=== PATIENT | male | born 1945 | race Caucasian/White ===

== ENCOUNTER 2019-08-03 15:07 | Outpatient (CLI) | payer MEDICARE, SELFPAY ==
[2019-08-03 16:30] LABS: Cholesterol 270 mg/dL (0-200); HDL Direct 43 mg/dL (40-60); LDL Cholesterol Calculated 188 mg/dL (<130); Triglycerides 194 mg/dL (0-150)
== END 2019-08-03 15:08 | disposition home or self-care (01) ==
PROVIDERS: PCP Internal Medicine Cardiovascular Disease; Visit Provider Internal Medicine Cardiovascular Disease
DX: E78.5 Hyperlipidemia, unspecified (principal)
CPT/HCPCS: 36415; 80061

== ENCOUNTER 2019-09-25 18:24 | Outpatient (CLI) | payer MEDICARE, SELFPAY ==
[2019-09-25 19:43] LABS: Prostate Specific Antigen < 0.1 ng/mL (< OR = 4.0)
== END 2019-09-25 18:25 | disposition home or self-care (01) ==
LOC: CHSLAB 18:27
PROVIDERS: PCP Family Medicine; Visit Provider Urology
DX: C61 Malignant neoplasm of prostate (principal); Z19.1 Hormone sensitive malignancy status
CPT/HCPCS: 36415; 84153

== ENCOUNTER 2020-03-19 10:36 | Outpatient (CLI) | payer MEDICARE, SELFPAY ==
[2020-03-19 12:03] LABS: Prostate Specific Antigen < 0.1 ng/mL (< OR = 4.0)
== END 2020-03-19 10:37 | disposition home or self-care (01) ==
LOC: CHSLAB 10:38
PROVIDERS: PCP Family Medicine; Visit Provider Urology
DX: C61 Malignant neoplasm of prostate (principal)
CPT/HCPCS: 36415; 84153

== ENCOUNTER 2021-03-18 14:20 | Outpatient (CLI) | payer MEDICARE, SELFPAY ==
[2021-03-18 15:17] LABS: Prostate Specific Antigen < 0.1 ng/mL (< OR = 4.0)
== END 2021-03-18 14:21 | disposition home or self-care (01) ==
LOC: CHSLAB 14:23
PROVIDERS: PCP Family Medicine; Visit Provider Urology
DX: C61 Malignant neoplasm of prostate (principal)
CPT/HCPCS: 36415; 84153

== ENCOUNTER 2021-09-15 12:47 | Outpatient (CLI) | payer MEDICARE, SELFPAY ==
[2021-09-15 13:31] LABS: Prostate Specific Antigen < 0.1 ng/mL (< OR = 4.0)
== END 2021-09-15 12:48 | disposition home or self-care (01) ==
LOC: CHSLAB 12:48
PROVIDERS: PCP Family Medicine; Visit Provider Urology
DX: C61 Malignant neoplasm of prostate (principal)
CPT/HCPCS: 36415; 84153

== ENCOUNTER 2022-01-17 19:01 | Outpatient (CLI) | payer MEDICARE, SELFPAY ==
[2022-01-17 19:33] LABS: Alanine Aminotransferase 22 U/L (16-63); Albumin Level 3.8 g/dL (3.4-5.0); Alkaline Phosphatase 87 U/L (46-116); Anion Gap 8 mmol/L (8-16); Aspartate Amino Transferase 18 U/L (15-37); Bilirubin,Total 0.4 mg/dL (0.00-1.00); Blood Urea Nitrogen 19 mg/dL (7-18); Calcium 8.9 mg/dL (8.5-10.1); Carbon Dioxide 27 mmol/L (21-32); Chloride 108 mmol/L (98-108); Estimated Glomerular Filt Rate 60; Glucose 114 mg/dL (70-99); Osmolality Calculated 299 mOsm/kg (285-295); Potassium 3.9 mmol/L (3.5-5.1); Sodium 143 mmol/L (136-145); Total Protein 7.3 g/dL (6.4-8.2)
== END 2022-01-17 19:02 | disposition home or self-care (01) ==
LOC: CHSLAB 19:04
PROVIDERS: PCP Nurse Practitioner Family; Visit Provider Nurse Practitioner Family
DX: L29.9 Pruritus, unspecified (principal); T78.40XA Allergy, unspecified, initial encounter
CPT/HCPCS: 36415; 80053; 82785; 86003

== ENCOUNTER 2022-03-18 13:54 | Outpatient (CLI) | payer MEDICARE, SELFPAY ==
[2022-03-18 15:50] LABS: Prostate Specific Antigen 0.1 ng/mL (< OR = 4.0)
== END 2022-03-18 13:55 | disposition home or self-care (01) ==
LOC: CHSLAB 13:56
PROVIDERS: PCP Nurse Practitioner Family; Visit Provider Urology
DX: C61 Malignant neoplasm of prostate (principal)
CPT/HCPCS: 36415; 84153

== ENCOUNTER 2023-04-29 07:22 | Outpatient (CLI) | payer MEDICARE, SELFPAY | END 2023-04-29 07:23 | disposition home or self-care (01) | PROVIDERS: PCP Nurse Practitioner Family; Visit Provider Urology | DX: C61 Malignant neoplasm of prostate (principal) | CPT/HCPCS: 36415; 84153 ==

== ENCOUNTER 2023-05-23 14:25 | Outpatient (CLI) | payer MEDICARE, OTHER, SELFPAY ==
--- NOTE | 2023-05-23 14:44 | ECG_ITS ---
Measurements Intervals [place] Rate: 66 P: 52 MN: 192 QRS: 71 QRSD: 94 T: 43 QT: 390 QTc: 410 Interpretive Statements SINUS RHYTHM NO PREVIOUS ECG AVAILABLE FOR COMPARISON Electronically Signed On 05-23-2023 14:50:52 PHOTORESIST PRINTER by Shahid Dukes M.D.
[2023-05-23 14:46] LABS: Basophils Absolute Auto 0.03 K/mm3 (0.00-0.10); Basophils Percent Auto 0.4 % (0.0-1.0); Eosinophils Absolute Auto 0.17 K/mm3 (0.02-0.50); Eosinophils Percent Auto 2.5 % (1.0-6.0); Hematocrit 39.6 % (37.0-46.0); Hemoglobin 12.9 g/dL (12.4-15.3); Immature Granulocyte Absolute 0.03 K/mm3 (0.00-0.00); Immature Granulocyte Percent A 0.4 % (0.0-0.0); Lymphocytes Absolute Auto 1.34 K/mm3 (1.10-4.50); Mean Corpuscular HGB Conc 32.6 g/dL (32.0-36.0); Mean Corpuscular Hemoglobin 31.2 pg (27.0-31.0); Mean Corpuscular Volume 95.9 fL (78.0-102.0); Mean Platelet Volume 8.8 fl (8.7-11.0); Monocytes Absolute Auto 0.61 K/mm3 (0.10-0.90); Monocytes Percent Auto 9.1 % (2.0-11.0); Neutrophils Absolute Auto 4.5 K/mm3 (1.7-7.2); Neutrophils Percent Auto 67.6 % (50.0-70.0); Platelet Count Result 227 K/mm3 (150-420); Red Blood Count 4.13 M/mm3 (4.70-6.10); Red Cell Distribution Width 12.5 % (11.6-14.4); White Blood Count 6.7 K/mm3 (4.8-10.8)
[2023-05-23 15:09] LABS: Alanine Aminotransferase 22 U/L (16-63); Albumin Level 3.7 g/dL (3.4-5.0); Alkaline Phosphatase 80 U/L (46-116); Anion Gap 9 mmol/L (8-16); Aspartate Amino Transferase 24 U/L (15-37); Bilirubin,Total 0.6 mg/dL (0.00-1.00); Blood Urea Nitrogen 15 mg/dL (7-18); Calcium 8.9 mg/dL (8.5-10.1); Carbon Dioxide 30 mmol/L (21-32); Chloride 103 mmol/L (98-108); Estimated Glomerular Filt Rate > 60; Glucose 99 mg/dL (70-99); Iron 53 ug/dL (65-175); Magnesium 2.2 mg/dL (1.8-2.4); Osmolality Calculated 294 mOsm/kg (285-295); Potassium 4.1 mmol/L (3.5-5.1); Sodium 142 mmol/L (136-145); Total Protein 7.2 g/dL (6.4-8.2)
[2023-05-26 02:39] LABS: Vitamin D 25 Hydroxy 29 ng/mL (30-100)
== END 2023-05-23 14:26 | disposition home or self-care (01) ==
LOC: CHSLAB 14:27
PROVIDERS: PCP Nurse Practitioner Family; Visit Provider Nurse Practitioner Family
DX: L29.9 Pruritus, unspecified (principal); R55 Syncope and collapse; Z79.899 Other long term (current) drug therapy
CPT/HCPCS: 36415; 80053; 82306; 83540; 83735; 85025; 93005

== ENCOUNTER 2023-05-25 08:33 | Outpatient (CLI) | payer MEDICARE, OTHER, SELFPAY ==
--- NOTE | ~2023-05-25 | MR_ITS ---
MRI of the brain Clinical History: Syncope Technique: Axial and sagittal T1-weighted images were acquired. These were followed by axial T2-weigh dorys, diffusion weighted, gradient, and FLAIR images. Findings: There is no acute infarct, intracranial hemorrhage, or mass lesion. There are mild chronic microvascular ischemic changes in the navicular matter bilaterally. Ventricles and subarachnoid spaces are unremarkable. Orbits are unremarkable. Paranasal sinuses are e ssentially clear. Small mastoid effusions are present. Major intracranial flow voids are intact. Sagittal midline structures are intact. IMPRESSION: No acute infarct, intracranial hemorrhage, or mass lesion. Mild chronic microvascular ischemic changes. Reviewed, dictated and finalized at [facility]. ICAL ADMINISTRATOR
== END 2023-05-25 08:34 | disposition home or self-care (01) ==
PROVIDERS: PCP Nurse Practitioner Family; Visit Provider Nurse Practitioner Family
DX: R55 Syncope and collapse (principal)
CPT/HCPCS: 70551

== ENCOUNTER 2024-05-02 15:04 | Outpatient (CLI) | payer MEDICARE, OTHER, SELFPAY ==
[2024-05-02 16:16] LABS: Prostate Specific Antigen 3.4 ng/mL (< OR = 4.0)
== END 2024-05-02 15:05 | disposition home or self-care (01) ==
PROVIDERS: PCP Nurse Practitioner Family; Visit Provider Urology
DX: C61 Malignant neoplasm of prostate (principal)
CPT/HCPCS: 36415; 84153

== ENCOUNTER 2024-05-31 12:59 | Outpatient (CLI) | payer MEDICARE, OTHER, SELFPAY ==
--- NOTE | ~2024-05-31 | PE_ITS ---
EXAMINATION: PET_PETPSMAST_PT DATE: 05/31/2024 14:44 INDICATION: Prostate cancer TECHNIQUE: 4.369 mCi of Illucix Ga-[id number]) was administered i.v. Low dose computed tabitha graphy (CT) images were acquired from the base of the brain to the base of the brain to the proximal thighs for attenuation correction and anatomic localization. Positron emission tomography (PET) image s were acquired in the same distribution beginning 77 minutes after injection. Images including fused PET/CT images were reconstructed in axial, coronal, and sagittal planes. Automated exposure control technique was employed. The dose-length product was 786.16mGy-cm. COMPARISON: CT abdomen and pelvis dated 08/25/2017 FINDINGS: Head/neck: Typical pattern of symmetric physiologic increased activity in the lacrimal, parotid and submandibula r glands as well as along the mucosa of the nasal and oral cavities, pharynx and hypopharynx. Mucosal thickening the bilateral ethmoid sinuses. No pathologically enlarged cervical lymphadenopathy or khadijah picious foci of increased uptake in the visualized head or neck. Chest: Mild dependent and basilar atelectasis in both lungs. No suspicious pulmonary nodules, pneumonia, pul monary edema or pleural effusion. Mild cardiomegaly. Atherosclerotic coronary artery calcifications. 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 Thoracic aorta is normal in ca liber. There are a few normal-sized bilateral axillary lymph nodes with mild uptake the largest and m ost PSMA avid measuring 2.3 x 1.1 cm with prominent central fatty hilum and maximal SUV of 3.0. No pa thologically enlarged or more intensely PSMA avid thoracic lymph nodes. Abdomen/pelvis/proximal thighs: Physiologic renal accumulation and excretion of activity in the kidneys, bladder and along portions o f ureters. There are few surgical clips versus brachytherapy seeds at the prostate. There is a small focus of asymmetric mild uptake at the right-sided the prostate with maximal SUV of 3.1. Normal degre e and slightly heterogenous pattern of increased uptake throughout the liver and spleen without radio logic correlate or dominant PSMA avid lesion. There is a photopenic defect associated with a 1 cm sub capsular cyst along the anterior left hepatic lobe. Multiple calcified gallstones in the dependent as pect of the normal-appearing gallbladder. The pancreas and bilateral adrenal glands are normal. Moder ate uptake scattered throughout the bowels with typical duodenal and proximal jejunal predominance an d without radiologic correlate, also likely physiologic. Image colonic diverticula most prominent ashley ng the descending and sigmoid colon without adjacent from trace stranding to suggest diverticulitis. Moderate-sized bilateral fat-containing inguinal hernias. No other abnormal foci of increased uptake or pathologically enlarged lymphadenopathy in the abdomen, pelvis or proximal thighs. Musculoskeletal: Moderate spondylosis the lower cervical and lower thoracic spine. No suspicious lytic, blastic or PSM A avid bone lesions. IMPRESSION: 1. Small focus of mild increased uptake at the right side of the prostate which could represent resid ual/locally recurrent disease. 2. Appears symmetric mild uptake associated with a few normal-sized bilateral axillary lymph nodes. A lthough could not exclude metastatic disease this would be an atypical distribution for initial prese ntation of metastatic disease in the absence of additional metastatic lymphadenopathy in the pelvis. Reviewed, dictated and finalized at location [facility]. R SPECIALIST IMPRESSION: 1. Small focus of mild increased uptake at the right side of the prostate which could represent residual/locally recurrent disease. 2. Appears symmetric mild uptake associated with a few normal-sized bilateral a xillary lymph nodes. Although could not exclude metastatic disease this would b e an atypical distribution for initial presentation of metastatic disease in th e absence of additional metastatic lymphadenopathy in the pelvis.
--- OUTSIDE RECORDS SUMMARY | 2024-05-31 13:03 | XMS_ITS | Clinical Summary ---
Author Organization [facility] Address [facility] [place] [address] Care Team Providers Care Bottle Washer Machine Name Role Phone Unavailable Primary Care Provider Unavailabl e Social History Tobacco Use Types Packs/Day Years Used Date Smoking Tobacco: Never Assessed Sex and Gender Information Value Date Recorded Sex Assigned at Not on file Legal Sex Male 7:42 AM CDT Gender Identity Not on file Sexual Orientation Not on file Plan of Treatment Health Maintenance Due Date Last Done Comments Hepatitis C 1963 DTaP, Tdap and Td Vaccines ( 1 - Tdap) 1965 Zoster Vaccines (1 of 2) 1996 Pneumococcal Vaccine: 65+ Ye ars (1 of 1 - PCV) 08/02/2011 RSV Immunization or 60+ Years (1 - 1-dose 75+ series) 2021 COVID-19 Vaccine ( - 2023-2 5 season) 2023 Influenza Adult (#1) 2024 Meningococcal B Vaccine Aged Out No l onger eligible based on patient's age to complete this topic Meningococcal Vaccine Aged Out No madonna coleman eligible based on patient's age to complete this topic RSV Immunizations Under 20 Months Aged Out No longer eligible based on patient's age to complete this topic
== END 2024-05-31 13:00 | disposition home or self-care (01) ==
LOC: ANHIMG 12:59
PROVIDERS: PCP Nurse Practitioner Family; Visit Provider Urology
DX: C61 Malignant neoplasm of prostate (principal)
CPT/HCPCS: 78815; A9596

== ENCOUNTER 2024-07-10 12:58 | Outpatient (CLI) | payer MEDICARE, SELFPAY ==
--- OUTSIDE RECORDS SUMMARY | 2024-07-10 14:18 | XMS_ITS | Clinical Summary ---
Author Organization [facility] Address [facility] [place] [address] Care Team Providers Care Lap Layer Name Role Phone Unavailable Primary Care Provider [...] Vaccine ( - 2023-2 5 season) 2023 Meningococcal B Vaccine Aged Out No l onger eligible based on patient's age to complete this topic Meningococcal Vaccine Aged Out No madonna coleman eligible based on patient's age to complete this topic RSV Immunizations Under 20 Months Aged Out No longer eligible based on patient's age to complete this topic
[2024-07-10 14:21] LABS: Prostate Specific Antigen 4.2 ng/mL (< OR = 4.0)
== END 2024-07-10 12:59 | disposition home or self-care (01) ==
PROVIDERS: Urology; PCP Nurse Practitioner Family; Visit Provider Nurse Practitioner Family
DX: C61 Malignant neoplasm of prostate (principal)
CPT/HCPCS: 36415; 84153

== ENCOUNTER 2025-01-08 09:31 | Outpatient (CLI) | payer MEDICARE, SELFPAY ==
--- OUTSIDE RECORDS SUMMARY | 2025-01-08 10:07 | XMS_ITS | Clinical Summary ---
Author Organization [facility] Address [facility] [place] [address] Care Team Providers Care Structural Fitter Name Role Phone Unavailable Primary Care Provider [...] Td Vaccines ( 1 - Tdap) 1965 Pneumococcal Vaccine: 50+ Ye ars (1 of 1 - PCV) 1996 Zoster Vaccines (1 of 2) 1996 RSV Immunization or 60+ Years (1 - 1-dose 75+ series) 2021 COVID-19 Vaccine ( - 2023-2 5 season) 2024 Meningococcal B Vaccine Aged Out No l onger eligible based on patient's age to complete this topic Meningococcal Vaccine Aged Out No madonna coleman eligible based on patient's age to complete this topic RSV Immunizations Under 20 Months Aged Out No longer eligible based on patient's age to complete this topic
[2025-01-08 10:09] LABS: Alanine Aminotransferase 15 U/L (6-50); Albumin Level 4.4 g/dL (3.5-5.1); Alkaline Phosphatase 71 U/L (38-126); Anion Gap 7 mmol/L (4-12); Aspartate Amino Transferase 28 U/L (17-59); Bilirubin,Total 0.7 mg/dL (0.2-1.3); Blood Urea Nitrogen 19 mg/dL (9-20); Calcium 9.8 mg/dL (8.4-10.2); Carbon Dioxide 29 mmol/L (22-30); Chloride 106 mmol/L (98-107); Cholesterol 226 mg/dL (0-200); Estimated Glomerular Filt Rate > 60; Glucose 108 mg/dL (65-110); HDL Direct 46 mg/dL; Osmolality Calculated 297 mOsm/kg (285-295); Potassium 4.5 mmol/L (3.4-5.0); Sodium 142 mmol/L (137-145); Total Protein 7.8 g/dL (6.3-8.2); Triglycerides 106 mg/dL (<150)
[2025-01-08 10:39] LABS: Prostate Specific Antigen 7.6 ng/mL (< OR = 4.0)
== END 2025-01-08 09:32 | disposition home or self-care (01) ==
LOC: CHSLAB 09:32
PROVIDERS: PCP Nurse Practitioner Family; Visit Provider Nurse Practitioner Family
DX: E78.5 Hyperlipidemia, unspecified (principal); Z85.46 Personal history of malignant neoplasm of prostate
CPT/HCPCS: 36415; 80053; 80061; 84153

== ENCOUNTER 2025-02-03 12:38 | Outpatient (CLI) | payer MEDICARE, OTHER, SELFPAY ==
--- NOTE | ~2025-02-03 | XR_ITS ---
EXAMINATION: XR chest 2V, 02/03/2025 12:40 CDT HISTORY: S22.49XA - Multiple fractures of ribs, unspecified side, ... COMPARISON: No comparisons available. Technique: 2 views obtained. Findings: COPD changes. Small basilar infiltrates or pleural effusions. No pneumothorax. Mild cardiomegaly. Mediastinal and hilar contours are within normal limits. Post sternotomy. Impression: Early bilateral pneumonia Reviewed, dictated and finalized at location P. Impression: Early bilateral pneumonia
--- OUTSIDE RECORDS SUMMARY | 2025-02-03 13:57 | XMS_ITS | Clinical Summary ---
Author Organization [facility] Address [address] [place] [address] Care Team Providers Care Mine Technician Name Role Phone Allynmadyson Daniela Sera BOYDN-STAFF INTERPRETER Primary Care Provid er Source Comments [facility],non-owned Affiliates and Associated Physician Practices is amultiple site organization consisting of ambulatory clinics and hospital sitesin [place], [place], [place] and [place]. This disclosure is being madepursuant to the Care Everywhere program and may not contain all information available regarding this patient. Last updated 17.[facility] Allergies No known active allergies Medications * Be aware that medications may not be up to date on this document. Alwaysverify current medications with the patient. lidocaine (Lidoderm) 5 % patch Apply 1 (one) patch to skin once daily Apply patch to most painful area and remove after 12 hours. May reapply a new patch 12 hours later. 30 patch 01/25/20 25 Active acetaminophen (Tylenol) 325 MG tablet Take 2 (two) tablets by mouth every 6 hours Maximum allowable Acetaminophen amount = 4 Grams (4000 mg) / 24 hours. 112 tablet 01/24/2025 6:00 PM CDT 01/25/20 25 Active gabapentin (Neurontin) 300 MG capsule Take 1 (one) capsule by mouth 3 times daily 60 capsule 01/24/2025 6:00 PM CDT 01/25/20 25 Active oxyCODONE, immediate release, (Roxicodone) 5 MG tabletIndication s:Trauma,Traumat ic fracture of ribs of right side with pneumothorax,Jaja sed fracture of multiple ribs of both sides, initial encounter,Trauma tic fracture of ribs of left side with pneumothorax Take 1 (one) tablet by mouth every 4 hours as needed for Pain 33 tablet 01/24/2025 6:00 PM CDT 01/25/20 Active polyethylene glycol 3350 (Miralax) 17 GM/SCOOP powder Take 17 (seventeen) g by mouth once daily 238 g 01/25/20 Active senna (Senokot) 8.6 MG tablet Take 1 (one) tablet by mouth once daily 30 tablet 01/24/2025 6:00 PM CDT 01/25/20 25 Active aspirin (Aspirin) 81 MG chew tablet Take 1 (one) tablet by mouth once daily (chew and swallow) 30 tablet 01/24/2025 6:00 PM CDT 01/26/20 25 Active Active Problems Problem Noted Date Diagnosed Date Trauma 01/22/2025 Closed fracture of multiple ribs of both sides, initial encounter 01/22/2025 Traumatic fracture of ribs of right side with pn eumothorax 01/22/2025 Traumatic fracture of ribs of left side with pne umothorax 01/22/2025 Encounters Date Type Department Care Team Description 01/22/2025 11:44 AM CDT - 01/24/2025 6:36 PM CDT Hospital Encounter [facility] 5N ACUTE [address] [place] [address] Jose Ramon Allen MD Behr, Antoni Walsh MD Trauma Discharge Disposition: Home or Self Care 01/22/2025 Travel from Last 3 Months Social History Tobacco Use Types Packs/Day Years Used Date Smoking Tobacco: Former Cigarettes Q uit: 1979 Smokeless Tobacco: Never Tobacco Cessation:Counseling Given: Yes Alcohol Use Standard Drinks/Week Comments Never 0 (1 standard drink = 0.6 oz pur e alcohol) AUDIT-C Answer Date Recorded Q1: How often do you have a drink containing alcohol? Never 01/22/2025 Q2: How many drinks containi ng alcohol do you have on a typical day when you are drinking? Patient does not drink Q3: How often do you have si x or more drinks on one occasion? Never 01/22/2025 Overall Financial Resource Strain (CARDIA) Answe r Date Recorded How hard is it for you to pa y for the very basics like food, housing, medical care, and heating? Not hard at all 01/23/2025 [facility] - Occupational Stress Questionnaire Answer Date Recorded Do you feel stress - tense, restless, nervous, or anxious, or unable to sleep at night because your mind is troubled all the time - these days? Not at all 01/23/2025 Hunger Vital Sign Answer Date Recorded Within the past 12 months, y ou worried that your food would run out before you got the money to buy more. Never true 01/24/20 25 Within the past 12 months, t he food you bought just didn't last and you didn't have money to get more. Never true 01/23/2025 PRAPARE - Transportation Answer Date Re corded In the past 12 months, has l ack of transportation kept you from medical appointments or from getting medications? No 01/23/2025 Lack of Transportation (Non-Medical) Not on file 01/23/2025 Housing Stability Vital Sign Answer Guillermo e Recorded In the last 12 months, was t here a time when you were not able to pay the mortgage or rent on time? No 01/23/2025 In the past 12 months, how m any times have you moved where you were living? 0 01/23/2025 At any time in the past 12 m [facility], were you homeless or living in a half-way (including now)? No 01/23/2025 Sex and Gender Information Value Date Recorded Sex Assigned at Not on file Legal Sex Male 11:43 AM CDT Gender Identity Not on file Sexual Orientation Not on file Last Filed Vital Signs Vital Sign Reading Time Taken Comments Blood Pressure 108/63 01/24/2025 11:50 AM CDT Pulse 63 01/24/2025 11:50 AM CDT Temperature 36.6 C (97.8 F) 01/24/2025 11:50 AM CDT Respiratory Rate 18 01/24/2025 11:50 AM CDT Oxygen Saturation 97% 01/24/2025 11:50 AM CDT Inhaled Oxygen Concentration - - Weight 65.8 kg (145 lb 1 oz) 01/23/2025 4:00 AM CDT Height 182.9 cm (6' 0.01) 01/22/2025 8:28 PM CD T Body Mass Index 19.67 01/22/2025 8:28 PM CDT Plan of Treatment Upcoming Encounters Date Type Department Care Team (Late st Contact Info) Description 02/06/2025 12:00 PM CDT Office Visit [facility] - General Surgery [address] [place] [address] Health Maintenance Due Date Last Done Comments MEDICARE AWV 12 MONTHS 1945 HEPATITIS C SCREENING 07/27/1964 DTAP/TDAP/TD VACCINES (1 - Tdap) 1965 PNEUMOCOCCAL VACCINE 50+ (1 of 1 - PCV) 1996 ZOSTER VACCINE (1 of 2) 1996 Respiratory Syncytial Virus (RSV) Vaccine Pt: or over 60 yrs (1 - 1-dose 75+ series) 2021 DEPRESSION SCREENING 04/10/2024 COVID-19 VACCINE ( - 2023-2 5 season) 2024 INFLUENZA VACCINE (#1) 2024 HEPATITIS B VACCINE Aged Out No longe r eligible based on patient's age to complete this topic HIB VACCINE Aged Out No longer eligi ble based on patient's age to complete this topic HPV VACCINE Aged Out No longer eligi ble based on patient's age to complete this topic MENINGOCOCCAL (Group B) VACC INE SHARED DECISION-MAKING Aged Out No longer eligibl e based on patient's age to complete this topic MENINGOCOCCAL GROUPS A/C/Y/W VACCINE Aged Out No longer eligible b ased on patient's age to complete this topic Procedures Procedure Name Priority Date/Time Associated Diagnosis Comments GLUCOSE - POINT OF CARE Routine 01/24/2025 11:58 AM CDT XR CHEST 1VW PORTABLE Timed 01/24/2025 10:09 AM CDT Traumatic fracture of ribs of right side with pneumothorax XR CHEST 1VW PORTABLE Routine 01/24/2025 4:55 AM CDT Trauma CALCIUM IONIZED WHOLE BLOOD Routine 01/23/2025 11:53 PM CDT BASIC METABOLIC PANEL (CALCIUM TOTAL) Routine 01/23/2025 11:53 PM CDT MAGNESIUM BLOOD Routine 01/23/2025 11:53 PM CDT PHOSPHORUS BLOOD Routine 01/23/2025 11:5 3 PM CDT CBC W AUTO DIFFERENTIAL Routine 01/23/2025 11:53 PM CDT GLUCOSE - POINT OF CARE Routine 01/23/2025 11:52 PM CDT GLUCOSE - POINT OF CARE Routine 01/23/2025 9:03 PM CDT GLUCOSE - POINT OF CARE Routine 01/23/2025 5:59 PM CDT GLUCOSE - POINT OF CARE Routine 01/23/2025 12:40 PM CDT GLUCOSE - POINT OF CARE Routine 01/23/2025 12:38 PM CDT GLUCOSE - POINT OF CARE Routine 01/23/2025 8:47 AM CDT ECHO COMPLETE W CONTRAST Routine 01/23/2025 8:17 AM CDT Trauma XR CHEST 1VW PORTABLE Routine 01/23/2025 4:06 AM CDT Closed fracture of multiple ribs of both sides, initial encounter BLOOD GASES ART + COOX PANEL Routine 01/23/2025 12:42 AM CDT CALCIUM IONIZED WHOLE BLOOD Routine 01/23/2025 12:42 AM CDT BASIC METABOLIC PANEL (CALCIUM TOTAL) Routine 01/23/2025 12:42 AM CDT MAGNESIUM BLOOD Routine 01/23/2025 12:42 AM CDT PHOSPHORUS BLOOD Routine 01/23/2025 12:4 2 AM CDT CBC W AUTO DIFFERENTIAL Routine 01/23/2025 12:42 AM CDT HEMOGLOBIN A1C Routine 01/23/2025 12:42 AM CDT GLUCOSE - POINT OF CARE Routine 01/22/2025 9:25 PM CDT GLUCOSE - POINT OF CARE Routine 01/22/2025 6:53 PM CDT BLOOD GASES ELAINE + COOX PANEL STAT 01/22/2025 6:04 PM CDT CALCIUM IONIZED WHOLE BLOOD STAT 01/22/2025 6:04 PM CDT BASIC METABOLIC PANEL (CALCIUM TOTAL) STAT 01/22/2025 6:04 PM CDT MAGNESIUM BLOOD STAT 01/22/2025 6:04 PM CDT PHOSPHORUS BLOOD STAT 01/22/2025 6:04 PM CDT CBC W AUTO DIFFERENTIAL STAT 01/22/2025 6:04 PM CDT BLOOD TYPE VERIFICATION STAT 01/22/2025 3:58 PM CDT URINE DRUG SCREEN IMMUNOASSAY STAT 01/22/2025 3:58 PM CDT EKG 12-LEAD Routine 01/22/2025 3:42 PM CDT Trauma BLOOD GASES ELAINE + COOX PANEL STAT 01/22/2025 12:[address] CHEST ABDOMEN PELVIS W CONT STAT 01/22/2025 12:[address] THORACIC SPINE WO CONTRAST STAT 01/22/2025 12:[address] LUMBAR SPINE WO CONTRAST STAT 01/22/2025 12:[address] CERVICAL SPINE WO CONTRAST STAT 01/22/2025 12:[address] HEAD WO CONTRAST STAT 01/22/2025 1 2:24 PM CDT Trauma TYPE + SCREEN PANEL STAT 01/22/2025 1 2:09 PM CDT PTT STAT 01/22/2025 12:09 PM CDT PT-INR STAT 01/22/2025 12:09 PM CDT LIPASE BLOOD STAT 01/22/2025 12:09 PM CDT COMPREHENSIVE METABOLIC PANEL STAT 01/22/2025 12:09 PM CDT CK BLOOD STAT 01/22/2025 12:09 PM CDT CBC W AUTO DIFFERENTIAL STAT 01/22/2025 12:09 PM CDT ALCOHOL ETHYL BLOOD STAT 01/22/2025 1 2:09 PM CDT XR CHEST 1VW PORTABLE STAT 01/22/2025 12:03 PM CDT Trauma XR PELVIS 1 OR 2VW STAT 01/22/2025 12 :03 PM CDT Trauma from Last 3 Months Results * (ABNORMAL) GLUCOSE - POINT OF CARE (01/24/2025 11:58 AM CDT) Only the most recent of9 resultswithin the time period is included. Glucose WB/POC 119(H) 70 - 99 mg/dL 01/24/2025 11:59 AM CDT [facility] Specimen Type Arterial/C apillary 01/24/2025 11:59 AM CDT [facility] Blood BLOOD SPECIMEN / Unknown 01/24/2025 11:58 AM CDT 01/24/2025 11:59 AM CDT us Antoni Forde MD LAB - POINT OF CARE ORDERA BLES Final Result [facility] [address] [place] [address], [facility] [phone] * XR Chest 1Vw Portable (01/24/2025 10:09 AM CDT) Only the most recent of4 resultswithin the time period is included. Anatomical Region Laterality Modality Chest Digital Radiogra phy 01/24/2025 7:01 PM CDT Narrative 01/24/2025 7:02 PM CDT PROCEDURE: XR CHEST 1VW PORTABLE DATE/TIME OF EXAM: 01/24/2025 10:09 AM CLINICAL INFORMATION: None relevant/not provided if blank. Indication: S22.41XA: Traumatic fracture of ribs of right side with pneumothorax S27.0XXA: Traumatic fracture of ribs of right side with pneumothorax Additional History: COMPARISON: Radiograph on the same day. FINDINGS: Tubes and lines: None. Lungs are moderately expanded. Mild by basilar lung atelectasis are reidentified without significant interval changes. Otherwise no acute findings in the lungs. No pleural effusion or pneumothorax seen. No other newly developed findings in the chest. > Interpreting Provider: Claudia Vasquez MD on 01/24/2025 7:02 PM Procedure Note Claudia Vasquez MD - 01/24/2025 PROCEDURE: XR CHEST 1VW PORTABLE DATE/TIME OF EXAM: 01/24/2025 10:09 AM CLINICAL INFORMATION: None relevant/not provided if blank. Indication: S22.41XA: Traumatic fracture of ribs of right side with pneumothorax S27.0XXA: Traumatic fracture of ribs of right side with pneumothorax Additional History: COMPARISON: Radiograph on the same day. FINDINGS: Tubes and lines: None. Lungs are moderately expanded. Mild by basilar lung atelectasis are reidentified without significant interval changes. Otherwise no acute findings in the lungs. No pleural effusion or pneumothorax seen. No other newly developed findings in the chest. > Interpreting Provider: Claudia Vasquez MD on 57:02 PM Christina Tyson PA-C DIAGNOSTIC IMAGING ORDERABLES Final Result * (ABNORMAL) CALCIUM IONIZED WHOLE BLOOD (01/23/2025 11:53 PM CDT) Only the most recent of3 resultswithin the time period is included. Pathologist [facility] Calcium Ionized 1.13 mmol/L 01/24/2025 12:19 AM CDT [facility] pH 7.39 7.35 - 7.45 pH 01/24/2025 12:19 AM [facility] Ionized Calcium pH Adjusted 1.13(L) 1.19 - 1.34 mmol/L 01/24/2025 12:19 AM [facility] Blood BLOOD SPECIMEN / Unknown Venipuncture / Unknown 01/23/2025 11:53 PM CDT 01/24/2025 12:01 AM CDT Jose Ramon Allen MD LAB - CHEMISTRY ORDERABLES Final Result [facility] [address] [place] [id number], [facility] [phone] * (ABNORMAL) CBC W AUTO DIFFERENTIAL (01/23/2025 11:53 PM CDT) Only the most recent of4 resultswithin the time period is included. Pathologist [facility] WBC 5.7 4.0 - 10.7 x10E9/L 01/24/2025 12:11 AM T [facility] RBC Count 3.43(L) 4.30 - 5.80 x10E12/L 01/24/2025 12:11 AM T [facility] Hemoglobin 11.1(L) 13.3 - 17.5 g/dL 01/24/2025 12:11 AM T [facility] Hematocrit 32.1(L) 38.7 - 51.1 % 01/24/2025 12:11 AM T [facility] MCV 93.6 80.0 - 98.0 fL 01/24/2025 12:11 AM [facility] MCH 32.4 26.7 - 33.6 pg 01/24/2025 12:11 AM [facility] MCHC 34.6 31.7 - 36.3 g/dL 01/24/2025 12:11 AM [facility] RDW-CV 12.7 11.3 - 14.8 % 01/24/2025 12:11 AM [facility] Platelet Count 188 150 - 420 x10E9/L 01/24/2025 12:11 AM [facility] MPV 9.2 7.8 - 11.4 fL 01/24/2025 12:11 AM [facility] Neutrophil % 69.1 41.0 - 74.0 % 01/24/2025 12:11 AM [facility] Lymphocyte % 18.1 17.0 - 47.0 % 01/24/2025 12:11 AM [facility] Monocyte % 9.4 3.0 - 11.0 % 01/24/2025 12:11 AM [facility] Eosinophil % 2.8 0.0 - 7.0 % 01/24/2025 12:11 AM [facility] Basophil % 0.3 0.0 - 1.6 % 01/24/2025 12:11 AM [facility] Immature Granulocytes % 0.3 0.0 - 1.0 % 01/24/2025 12:11 AM [facility] Neutrophil Absolute 3.96 1.60 - 7.50 x10E9/L 01/24/2025 12:11 AM [facility] Lymphocyte Absolute 1.04 1.00 - 4.40 x10E9/L 01/24/2025 12:11 AM [facility] Monocyte Absolute 0.54 0.15 - 1.00 x10E9/L 01/24/2025 12:11 AM [facility] Eosinophil Absolute 0.16 0.00 - 0.60 x10E9/L 01/24/2025 12:11 AM [facility] Basophil Absolute 0.02 0.00 - 0.13 x10E9/L 01/24/2025 12:11 AM [facility] Blood BLOOD SPECIMEN / Unknown Venipuncture / Unknown 01/23/2025 11:53 PM CDT 01/24/2025 12:05 AM CDT us Jose Ramon Allen MD LAB - HEMATOLOGY ORDERABLE S Final Result [facility] [address] [place] [address], [facility] [phone] * (ABNORMAL) BASIC METABOLIC PANEL (CALCIUM TOTAL) (01/23/2025 11:53 PM CDT) Only the most recent of3 resultswithin the time period is included. BUN 11 7 - 26 mg/dL 01/24/2025 12:36 AM [facility] Creatinine 0.45(L) 0.71 - 1.16 mg/dL 01/24/2025 12:36 AM [facility] Sodium 136 136 - 145 mmol/L 01/24/2025 12:36 AM [facility] Potassium 3.3(L) 3.5 - 4.5 mmol/L 01/24/2025 12:36 AM [facility] Chloride 108(H) 98 - 107 mmol/L 01/24/2025 12:36 AM [facility] CO2 23 22 - 29 mmol/L 01/24/2025 12:36 AM [facility] Glucose 113(H) 70 - 99 mg/dL 01/24/2025 12:36 AM [facility] Calcium 7.3(L) 8.4 - 10.2 mg/dL 01/24/2025 12:36 AM [facility] Anion Gap 5(L) 6 - 16 01/24/2025 12:36 AM [facility] BUN/Creatinine Ratio 24(H) 7 - 23 01/24/2025 12:36 AM [facility] Osmolality Calculated 282 275 - 295 mOsm/kg 01/24/2025 12:36 AM [facility] eGFR by CKD-EPI >90 >=90 mL/min/1.7 3 m2 01/24/2025 12:36 AM CDT [facility] Comment:Estimated Glomerular Filtration Rate (eGFR) calculated using the CKD-EPI Creatinine Equation (2020), per the National Kidney Foundation and [place] [employer]ph[employer] recommendations. Blood BLOOD SPECIMEN / Unknown Venipuncture / Unknown 01/23/2025 11:53 PM CDT 01/24/2025 12:05 AM CDT Jose Ramon Allen MD LAB - CHEMISTRY ORDERABLES Final Result Performing Organization Address City/[facility]/ZIP Co de Phone Number [address] [address], [facility] [phone] * (ABNORMAL) PHOSPHORUS BLOOD (01/23/2025 11:53 PM CDT) Only the most recent of3 resultswithin the time period is included. Phosphorus 1.7(L) 2.8 - 5.1 mg/dL 01/24/2025 12:36 AM CDT [facility] Blood BLOOD SPECIMEN / Unknown Venipuncture / Unknown 01/23/2025 11:53 PM CDT 01/24/2025 12:05 AM CDT Jose Ramon Allen MD LAB - CHEMISTRY ORDERABLES Final Result Performing Organization Address [facility] Co de Phone Number [address] [address], [place] [phone] * MAGNESIUM BLOOD (01/23/2025 11:53 PM CDT) Only the most recent of3 resultswithin the time period is included. Magnesium 1.9 1.6 - 2.6 mg/dL 01/24/2025 12:36 AM CDT [facility] Blood BLOOD SPECIMEN / Unknown Venipuncture / Unknown 01/23/2025 11:53 PM CDT 01/24/2025 12:05 AM CDT Jose Ramon Allen MD LAB - CHEMISTRY ORDERABLES Final Result Performing Organization Address City/[facility]/ZIP Co de Phone Number [place] [phone] [place] [address], [facility] [phone] * ECHO COMPLETE W CONTRAST (01/23/2025 8:17 AM CDT) AV area index 1.84 cm /m SSM CV FUJI PACS Dimensionless Index 0.754 unitless SSM CV FUJI PACS Myocardial strain charge 2 unitless SSM CV FUJI PACS IVSd 2D 0.82 cm SSM CV FUJ I PACS LVIDd 5.162 cm SSM CV FUJ I PACS LVIDs 3.431 cm SSM CV FUJ I PACS LVOT diam 2.376 cm SSM CV FUJ I PACS LVPWd 1.009 cm SSM CV FUJ I PACS LVOT pk grad 2.102 mmHg SSM CV FUJI PACS LVOT pk amos 72.49 cm/s SSM CV F UJI PACS LVOT VTI 17.321 cm SSM CV FUJ I PACS RVOT pk amos 73.51 cm/s SSM CV F UJI PACS RVOT VTI 16.891 cm SSM CV FUJ I PACS LA size 4.531 cm SSM CV FUJ I PACS AV area pk amos 2.635 cm SSM CV FUJI PACS AV area cont VTI 3.343 cm SSM CV FUJI PACS AV pk grad 5.954 mmHg SSM CV FU JI PACS AV mn grad 2.422 mmHg SSM CV FU JI PACS AV pk amos 122.009 cm/s SSM CV FUJ I PACS AV VTI 22.979 cm SSM CV FUJ I PACS MV A pk amos 69.301 cm/s SSM CV F UJI PACS MV E pk amos 67.33 cm/s SSM CV F UJI PACS MV E' lateral amos 8.302 cm/s SS M CV FUJI PACS MV mn grad 1.038 mmHg SSM CV FU JI PACS MV VTI 24.985 cm SSM CV FUJ I PACS PV pk amos 81.707 cm/s SSM CV FUJ I PACS PV VTI 17.444 cm SSM CV FUJ I PACS Ascending aorta 3.066 cm SSM CV FUJI PACS AV PHT 1.537 s SSM CV FUJ I PACS LV A2C EF 83.895 % SSM CV FUJ I PACS LV biplane EF 76.751 % SSM CV FUJI PACS AV pk amos regurg 146.2 cm/s SSM CV FUJI PACS LV EDV A2C 63.715 ml SSM CV FU JI PACS LV ESV A2C 10.261 ml SSM CV FU JI PACS AR DECEL TIME 5.301 s SSM CV FUJI PACS LV A4C EF 65.817 % SSM CV FUJ I PACS LV EDV A4C 106.69 ml SSM CV FU JI PACS LV ESV A4C 36.47 ml SSM CV FU JI PACS Sinus of Valsalva 3.601 cm SS M CV FUJI PACS ST junction 2.748 cm SSM CV F UJI PACS Anatomical Region Laterality Modality Ultrasound 01/23/2025 7:42 AM CDT Narrative 01/23/2025 10:38 AM CDT Summary * Technically difficult study. * Left ventricular systolic function is normal with an estimated ejection fraction of 73 by biplane method of disks. * The left ventricular diastolic function is normal. * Right ventricle is normal in size with normal systolic function. * No hemodynamically significant valve disease. * Normal inferior vena cava with > 50% collapse upon inspiration consistent with normal right atrial pressure, 3 mmHg. * Unable to assess pulmonary pressures due to a lack of tricuspid and pulmonic regurgitation. Patient Info Name: Nathan Jensen Age: 79 years : 1945 Gender: Male Ht: 72 in Wt: 145 lb BSA: 1.82 m2 HR: 59 bpm BP: 136 / 64 mmHg Heart Rhythm: Sinus Rhythm Exam Date: 01/23/2025 7:42 AM Patient Status: O Study Site[facility] Technical Quality: Fair Exam Type: ECHO COMPLETE W CONTRAST Indications T14.90XA - Trauma Procedure(s) * A complete 2D, color Doppler, spectral Doppler, and M-Mode transthoracic echocardiogram was performed. * An Ultrasound Enhancing Agent (UEA) was utilized to enhance endocardial definition, opacify the left ventricle and further assess left ventricular function and wall motion. Contrast/Agitated Saline Contrast / Saline: Definity Amount: 1.50 ml Reaction to Contrast: no Reason for Technically Difficult Study: lung interference, restricted mobility, body habitus Staff Referring Physician: Antoni Forde Ordering Provider: Antoni Forde Attending Physician: Antoni Forde Physician Assistant Primary Care: Javed Kaye Left Ventricle The left ventricle is normal in size. The left ventricular mass is normal. Left ventricular segmental wall motion is normal. The left ventricular diastolic function is normal. Left ventricular systolic function is normal with an estimated ejection fraction of 73 by biplane method of disks. Normal diastolic function for age. Right Ventricle The right ventricle is normal in size. Right ventricular systolic function is normal. Left Atrium The left atrium is at the upper limits of normal in size. Right Atrium The right atrium is not well visualized, but appears grossly normal in size. Atrial Septum Intact interatrial septum visualized by 2D and color Doppler imaging. Aortic Valve The aortic valve is grossly normal and trileaflet. There is no aortic valve stenosis with a peak velocity of 1.2 m/s, mean gradient of 2 mmHg, and aortic valve area of 3.34 cm2. There is trace aortic valve regurgitation. Pulmonic Valve Pulmonic valve is not well visualized, but grossly normal, with no stenosis, and no significant regurgitation. Mitral Valve Mitral valve has mild to moderate annular calcification with normal leaflets. There is no mitral valve stenosis with a mean gradient of 1.0 mmHg at a heart rate of 58 bpm. There is no mitral valve regurgitation. Tricuspid Valve The tricuspid valve is not well visualized. There is no tricuspid valve stenosis. There is no significant tricuspid valve regurgitation. Unable to assess pulmonary pressures due to a lack of tricuspid and pulmonic regurgitation. Inferior Vena Cava Normal inferior vena cava with > 50% collapse upon inspiration consistent with normal right atrial pressure, 3 mmHg. There is > 50% collapse of the IVC upon inspiration with an estimated right atrial pressure of 3 mmHg. Pericardium/Pleural Pericardium is normal in appearance with no evidence for significant pericardial effusion. There is no pericardial effusion. Aorta The aortic root at the sinus of Valsalva is normal in size. The ascending aorta is normal in size. Measurements Left Ventricular Outflow Tract Name Value Normal LVOT 2D LVOT Diameter 2.4 cm LVOT Area 4.4 cm2 LVOT Doppler LVOT Peak Velocity 0.7 m/s LVOT Peak Gradient 2 mmHg LVOT Mean Velocity 49.33 cm/s LVOT Mean Gradient 1 mmHg LVOT VTI 17.3 cm LVOT VTI/AV VTI Ratio 0.8 LVOT Stroke Volume 77 ml LVOT Stroke Volume Index 42 ml/m2 35-58 LVOT CO 4.5 l/min LVOT CI 2.5 l/min/m2 Pulmonic Valve Name Value Normal RVOT Doppler RVOT Peak Velocity 0.7 m/s RVOT Peak Gradient 2 mmHg RVOT Mean Gradient 1 mmHg PV Doppler PV Peak Velocity 0.8 m/s PV Peak Gradient 3 mmHg PV Mean Gradient 1 mmHg Mitral Valve Name Value Normal MV Doppler MV Peak Gradient 2 mmHg MV Mean Gradient 1 mmHg MV DI (VTI) 1.44 MV PHT 82 ms MV Area (PHT) 2.67 cm2 4.00-5.00 MV Area (Cont Eq VTI) 3.07 cm2 MV Diastolic Function MV E Peak Velocity 0.7 m/sec MV A Peak Velocity 0.7 m/sec MV E/A 1.0 MV Decel Time (PW) 284 ms MV Annular TDI MV Septal e' Velocity 10 cm/s >=8 MV E/e' (Septal) 7 <=8 MV Lateral e' Velocity 8 cm/s >=10 MV E/e' (Lateral) 8 <=8 MV e' Average 9 cm/s MV E/e' (Average) 8 Tricuspid Valve Name Value Normal Estimated PAP/RSVP RA Pressure 3 mmHg <=5 TV Annular TDI TV Lateral Macie s' Velocity 12 cm/s 10-19 Aorta Name Value Normal Ascending Aorta Sinus of Valsalva Diameter 3.6 cm 2.8-4.0 Sinus of Valsalva Index 2.0 cm/m2 1.3-2.1 Ao Sinotub Junction Diameter 2.7 cm 2.6-3.2 Asc Ao Diameter 3.1 cm 2.2-3.8 Asc Ao Diameter Index 1.7 cm/m2 1.1-1.9 Septae/Shunt/Generic Name Value Normal Miscellaneous Measurements rv Volume 24.13 cm3 rv Area 12.76 cm2 rv Length 5.33 cm Venous Name Value Normal IVC/SVC IVC Diameter (Insp 2D) 1.5 cm Aortic Valve Name Value Normal AV 2D/MM AV Cusp Sep (MM) 2.1 cm AV Doppler AV Peak Velocity 1.22 m/s AV Peak Gradient 6 mmHg AV Mean Gradient 2 mmHg AV VTI 23 cm AV Area (Cont Eq VTI) 3.34 cm2 >=2.00 AV Area (Cont Eq Amos) 2.64 cm2 AV DI (VTI) 0.75 AV DI (Amos) 0.59 AV Regurgitation 2D LVOT Area 4.43 cm2 AV Regurgitation Doppler AR Decel Time 5,301 ms AR PHT 1,537 ms Ventricles Name Value Normal LV Dimensions 2D/MM IVS Diastolic Thickness (2D) 0.8 cm 0.6-1.0 LVID Diastole (2D) 5.2 cm 4.2-5.8 LVPW Diastolic Thickness (2D) 1.0 cm 0.6-1.0 LVID Systole (2D) 3.4 cm 2.5-4.0 LV Mass (2D Cubed) 170 g 88-224 LV Mass Index (2D Cubed) 94 g/m2 49-115 Relative Wall Thickness (2D) 0.39 <=0.42 LV Fractional Shortening/Ejection Fraction 2D/MM LV Fractional Shortening (2D) 33 % 25-43 LV EF (2D Teicholz) 62 % 52-72 LV Diastolic Volume (4C MOD) 107 ml LV EF (4C MOD) 66 % LV Diastolic Volume (2C MOD) 64 ml LV EF (2C MOD) 84 % LV Diastolic Volume (BP MOD) 81 ml 62-150 LV Diastolic Volume Index (BP MOD) 45 ml/m2 34-74 LV Systolic Volume (BP MOD) 19 ml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 dependent portions of the lung bases. There is left atrial enlargement. There are calcifications of the aortic root. There are atherosclerotic calcifications of the coronary arteries. There is thickening of the interventricular septum and the left ventricular wall. There are multiple gallbladder stones, the largest measures approximately 1.9 cm, (series 8, image 108). The patient is status post median sternotomy. Sternal fractures are better assessed on the concurrent body CT. Lumbar spine: Relative straightening of the lumbar lordosis. Minimal retrolisthesis of L3 on L4, L4 on L5, and to a lesser extent L2 on L3. Minimal levocurvature of the lumbar spine. Vertebral bodies are normal in height without evidence of acute fracture. There is diffuse disc bulge at multiple levels. No high-grade central canal stenosis is seen. There is mild to moderate facet osteoarthritis at multiple levels. There are varying degrees of neural foraminal stenosis at multiple levels. Colonic diverticulosis is partially imaged. There is atherosclerotic calcification of the abdominal aorta and its branch vessels. Brain injury guidelines: Skull fracture: No Subdural hematoma: No subdural hematoma. Epidural hematoma: No epidural hematoma. Intraparenchymal hemorrhage: No intraparenchymal hemorrhage. Subarachnoid hemorrhage: No subarachnoid hemorrhage. Intraventricular hemorrhage: No. Midline shift: No. Procedure Note Paulette Hernandez MD - 01/22/2025 PROCEDURE: CT HEAD WO CONTRAST, CT CERVICAL SPINE WO CONTRAST, CTTHORACIC SPINE WO CONTRAST, CT LUMBAR SPINE WO CONTRAST, DATE/TIME OF EXAM: 01/22/2025 12:25 PM, LOCATION [facility] INDICATION: T14.90XA: Trauma EXAMINATION: 1.Computed tomography (CT) of the head without contrast 2.CT of the cervical spine without contrast 3.CT of the thoracic spine without contrast 4.CT of the lumbar spine without contrast ADDITIONAL CLINICAL INFORMATION: Ordering Provider Reason For Exam: Trauma Technologist Note: None. Additional: None. TECHNIQUE: CT of the head and cervical spine was performed withoutcontrast according to standard protocol. Reformatted axial, sagittal, and coronal images of the thoracic and lumbar spine were obtained by thetechnologist from a concurrently performed body CT and sent to the workstation for review. CT dose reduction technique was used, including AutomatedExposure Control. COMPARISON: No prior study is available for comparison at the time ofthis dictation. FINDINGS: Head: No acute intra- or extra-axial fluid collections are identified. Thereis mild cerebral volume loss with associated ex vacuo ventriculardilatation. The basilar cisterns are patent. No mass effect or midline shift isseen. The bonner-white matter differentiation is normal. Periventricular white matter hypoattenuation is indicative of chronic small vessel ischemic disease. There is vascular calcification of the carotid siphons and theV4 segments of the vertebral arteries. No acute calvarial fracture is identified. The orbits appear normal. There is paranasal sinus disease. There is diffuse opacification in the ethmoid air cells. The nasalseptum is deviated to the right with a septal spur in contact with the right inferior turbinate. Mild opacification in the dependent mastoid aircells bilaterally. The mastoid air cells are clear. No soft tissue abnormalityis identified. Cervical spine: Relative straightening of the cervical lordosis. Trace anterolisthesisof C4 on C5. Minimal retrolisthesis of C5 on C6 and C6 on C7. Minimal anterolisthesis of C7 and on T1 and T1 on T2. The alignment is otherwise maintained. The left C7 transverse process, (series 5, image 107,favored to represent a nutrient channel. Vertebral bodies are normal in height without evidence of acute fracture. Other than middle atlantoaxial joint osteoarthritis, the craniocervical junction appears normal. There ismild degenerative disc disease. No central canal stenosis is seen. There are varying degrees of mild facet osteoarthritis. The uncovertebral joints appear normal. with the same degree of neural foraminal stenosis atthese levels. Small, left more than right apical pneumothoraces are noted. Thoracic spine: Exaggeration of the thoracic kyphosis. Minimal levocurvature of theupper thoracic spine. The bones are osteopenic. There is a mildly displaced fracture of the lateral right first rib. Additional rib fractures are better assess done the concurrent body CT. Subtle anterior wedging deformity of the T7 vertebral body without definite fracture lines. The remaining vertebral bodies are normal in height without evidence ofacute fracture. There is mild degenerative disc disease. No high-grade central canal stenosis is seen. There is mild facet osteoarthritis at multiple levels. No high-grade neural foraminal stenosis is seen. There is subsegmental atelectasis in the dependent portions of the lung bases.There is left atrial enlargement. There are calcifications of the aortic root. There are atherosclerotic calcifications of the coronary arteries. Thereis thickening of the interventricular septum and the left ventricular wall. There are multiple gallbladder stones, the largest measuresapproximately 1.9 cm, (series 8, image 108). The patient is status post median sternotomy. Sternal fractures are better assessed on the concurrent body CT. Lumbar spine: Relative straightening of the lumbar lordosis. Minimal retrolisthesis ofL3 on L4, L4 on L5, and to a lesser extent L2 on L3. Minimal levocurvatureof the lumbar spine. Vertebral bodies are normal in height without evidenceof acute fracture. There is diffuse disc bulge at multiple levels. No high-grade central canal stenosis is seen. There is mild to moderatefacet osteoarthritis at multiple levels. There are varying degrees of neural foraminal stenosis at multiple levels. Colonic diverticulosis ispartially imaged. There is atherosclerotic calcification of the abdominal aortaand its branch vessels. Brain injury guidelines: Skull fracture: No Subdural hematoma: No subdural hematoma. Epidural hematoma: No epidural hematoma. Intraparenchymal hemorrhage: No intraparenchymal hemorrhage. Subarachnoid hemorrhage: No subarachnoid hemorrhage. Intraventricular hemorrhage: No. Midline shift: No. IMPRESSION: 1.No acute intracranial hemorrhage, midline shift, or significant mass effect. 2.No evidence of acute fracture in the cervical, thoracic, or lumbarspine 3.Please refer to the concurrent, dedicated body report for findings inthe chest, abdomen, and pelvis. > Interpreting Provider: Paulette Hernandez MD on 01/22/2025 3:10 PM us Jose Ramon Allen MD CT ORDERABLES Final Resu lt * CT THORACIC SPINE WO CONTRAST (01/22/2025 12:24 PM CDT) Anatomical Region Laterality Modality Spine Computed Tomogra phy 01/22/2025 2:02 PM CDT Impressions 01/22/2025 3:10 PM CDT IMPRESSION: 1.No acute intracranial hemorrhage, midline shift, or significant mass effect. 2.No evidence of acute fracture in the cervical, thoracic, or lumbar spine 3.Please refer to the concurrent, dedicated body report for findings in the chest, abdomen, and pelvis. > Interpreting Provider: Paulette Hernandez MD on 01/22/2025 3:10 PM Narrative 01/22/2025 3:10 PM CDT PROCEDURE: CT HEAD WO CONTRAST, CT CERVICAL SPINE WO CONTRAST, CT THORACIC SPINE WO CONTRAST, CT LUMBAR SPINE WO CONTRAST, DATE/TIME OF EXAM: 01/22/2025 12:25 PM, LOCATION [facility] INDICATION: T14.90XA: Trauma EXAMINATION: 1.Computed tomography (CT) of the head without contrast 2.CT of the cervical spine without contrast 3.CT of the thoracic spine without contrast 4.CT of the lumbar spine without contrast ADDITIONAL CLINICAL INFORMATION: Ordering Provider Reason For Exam: Trauma Technologist Note: None. Additional: None. TECHNIQUE: CT of the head and cervical spine was performed without contrast according to standard protocol. Reformatted axial, sagittal, and coronal images of the thoracic and lumbar spine were obtained by the technologist from a concurrently performed body CT and sent to the workstation for review. CT dose reduction technique was used, including Automated Exposure Control. COMPARISON: No prior study is available for comparison at the time of this dictation. FINDINGS: Head: No acute intra- or extra-axial fluid collections are identified. There is mild cerebral volume loss with associated ex vacuo ventricular dilatation. The basilar cisterns are patent. No mass effect or midline shift is seen. The bonner-white matter differentiation is normal. Periventricular white matter hypoattenuation is indicative of chronic small vessel ischemic disease. There is vascular calcification of the carotid siphons and the V4 segments of the vertebral arteries. No acute calvarial fracture is identified. The orbits appear normal. There is paranasal sinus disease. There is diffuse opacification in the ethmoid air cells. The nasal septum is deviated to the right with a septal spur in contact with the right inferior turbinate. Mild opacification in the dependent mastoid air cells bilaterally. The mastoid air cells are clear. No soft tissue abnormality is identified. Cervical spine: Relative straightening of the cervical lordosis. Trace anterolisthesis of C4 on C5. Minimal retrolisthesis of C5 on C6 and C6 on C7. Minimal anterolisthesis of C7 and on T1 and T1 on T2. The alignment is otherwise maintained. The left C7 transverse process, (series 5, image 107, favored to represent a nutrient channel. Vertebral bodies are normal in height without evidence of acute fracture. Other than middle atlantoaxial joint osteoarthritis, the craniocervical junction appears normal. There is mild degenerative disc disease. No central canal stenosis is seen. There are varying degrees of mild facet osteoarthritis. The uncovertebral joints appear normal. with the same degree of neural foraminal stenosis at these levels. Small, left more than right apical pneumothoraces are noted. Thoracic spine: Exaggeration of the thoracic kyphosis. Minimal levocurvature of the upper thoracic spine. The bones are osteopenic. There is a mildly displaced fracture of the lateral right first rib. Additional rib fractures are better assess done the concurrent body CT. Subtle anterior wedging deformity of the T7 vertebral body without definite fracture lines. The remaining vertebral bodies are normal in height without evidence of acute fracture. There is mild degenerative disc disease. No high-grade central canal stenosis is seen. There is mild facet osteoarthritis at multiple levels. No high-grade neural foraminal stenosis is seen. There is subsegmental atelectasis in the dependent portions of the lung bases. There is left atrial enlargement. There are calcifications of the aortic root. There are atherosclerotic calcifications of the coronary arteries. There is thickening of the interventricular septum and the left ventricular wall. There are multiple gallbladder stones, the largest measures approximately 1.9 cm, (series 8, image 108). The patient is status post median sternotomy. Sternal fractures are better assessed on the concurrent body CT. Lumbar spine: Relative straightening of the lumbar lordosis. Minimal retrolisthesis of L3 on L4, L4 on L5, and to a lesser extent L2 on L3. Minimal levocurvature of the lumbar spine. Vertebral bodies are normal in height without evidence of acute fracture. There is diffuse disc bulge at multiple levels. No high-grade central canal stenosis is seen. There is mild to moderate facet osteoarthritis at multiple levels. There are varying degrees of neural foraminal stenosis at multiple levels. Colonic diverticulosis is partially imaged. There is atherosclerotic calcification of the abdominal aorta and its branch vessels. Brain injury guidelines: Skull fracture: No Subdural hematoma: No subdural hematoma. Epidural hematoma: No epidural hematoma. Intraparenchymal hemorrhage: No intraparenchymal hemorrhage. Subarachnoid hemorrhage: No subarachnoid hemorrhage. Intraventricular hemorrhage: No. Midline shift: No. Procedure Note Paulette Hernandez MD - 01/22/2025 PROCEDURE: CT HEAD WO CONTRAST, CT CERVICAL SPINE WO CONTRAST, CTTHORACIC SPINE WO CONTRAST, CT LUMBAR SPINE WO CONTRAST, DATE/TIME OF EXAM: 01/22/2025 12:25 PM, LOCATION [facility] INDICATION: T14.90XA: Trauma EXAMINATION: 1.Computed tomography (CT) of the head without contrast 2.CT of the cervical spine without contrast 3.CT of the thoracic spine without contrast 4.CT of the lumbar spine without contrast ADDITIONAL CLINICAL INFORMATION: Ordering Provider Reason For Exam: Trauma Technologist Note: None. Additional: None. TECHNIQUE: CT of the head and cervical spine was performed withoutcontrast according to standard protocol. Reformatted axial, sagittal, and coronal images of the thoracic and lumbar spine were obtained by thetechnologist from a concurrently performed body CT and sent to the workstation for review. CT dose reduction technique was used, including AutomatedExposure Control. COMPARISON: No prior study is available for comparison at the time ofthis dictation. FINDINGS: Head: No acute intra- or extra-axial fluid collections are identified. Thereis mild cerebral volume loss with associated ex vacuo ventriculardilatation. The basilar cisterns are patent. No mass effect or midline shift isseen. The bonner-white matter differentiation is normal. Periventricular white matter hypoattenuation is indicative of chronic small vessel ischemic disease. There is vascular calcification of the carotid siphons and theV4 segments of the vertebral arteries. No acute calvarial fracture is identified. The orbits appear normal. There is paranasal sinus disease. There is diffuse opacification in the ethmoid air cells. The nasalseptum is deviated to the right with a septal spur in contact with the right inferior turbinate. Mild opacification in the dependent mastoid aircells bilaterally. The mastoid air cells are clear. No soft tissue abnormalityis identified. Cervical spine: Relative straightening of the cervical lordosis. Trace anterolisthesisof C4 on C5. Minimal retrolisthesis of C5 on C6 and C6 on C7. Minimal anterolisthesis of C7 and on T1 and T1 on T2. The alignment is otherwise maintained. The left C7 transverse process, (series 5, image 107,favored to represent a nutrient channel. Vertebral bodies are normal in height without evidence of acute fracture. Other than middle atlantoaxial joint osteoarthritis, the craniocervical junction appears normal. There ismild degenerative disc disease. No central canal stenosis is seen. There are varying degrees of mild facet osteoarthritis. The uncovertebral joints appear normal. with the same degree of neural foraminal stenosis atthese levels. Small, left more than right apical pneumothoraces are noted. Thoracic spine: Exaggeration of the thoracic kyphosis. Minimal levocurvature of theupper thoracic spine. The bones are osteopenic. There is a mildly displaced fracture of the lateral right first rib. Additional rib fractures are better assess done the concurrent body CT. Subtle anterior wedging deformity of the T7 vertebral body without definite fracture lines. The remaining vertebral bodies are normal in height without evidence ofacute fracture. There is mild degenerative disc disease. No high-grade central canal stenosis is seen. There is mild facet osteoarthritis at multiple levels. No high-grade neural foraminal stenosis is seen. There is subsegmental atelectasis in the dependent portions of the lung bases.There is left atrial enlargement. There are calcifications of the aortic root. There are atherosclerotic calcifications of the coronary arteries. Thereis thickening of the interventricular septum and the left ventricular wall. There are multiple gallbladder stones, the largest measuresapproximately 1.9 cm, (series 8, image 108). The patient is status post median sternotomy. Sternal fractures are better assessed on the concurrent body CT. Lumbar spine: Relative straightening of the lumbar lordosis. Minimal retrolisthesis ofL3 on L4, L4 on L5, and to a lesser extent L2 on L3. Minimal levocurvatureof the lumbar spine. Vertebral bodies are normal in height without evidenceof acute fracture. There is diffuse disc bulge at multiple levels. No high-grade central canal stenosis is seen. There is mild to moderatefacet osteoarthritis at multiple levels. There are varying degrees of neural foraminal stenosis at multiple levels. Colonic diverticulosis ispartially imaged. There is atherosclerotic calcification of the abdominal aortaand its branch vessels. Brain injury guidelines: Skull fracture: No Subdural hematoma: No subdural hematoma. Epidural hematoma: No epidural hematoma. Intraparenchymal hemorrhage: No intraparenchymal hemorrhage. Subarachnoid hemorrhage: No subarachnoid hemorrhage. Intraventricular hemorrhage: No. Midline shift: No. IMPRESSION: 1.No acute intracranial hemorrhage, midline shift, or significant mass effect. 2.No evidence of acute fracture in the cervical, thoracic, or lumbarspine 3.Please refer to the concurrent, dedicated body report for findings inthe chest, abdomen, and pelvis. > Interpreting Provider: Paulette Hernandez MD on 01/22/2025 3:10 PM us Jose Ramon Allen MD CT ORDERABLES Final Resu lt * CT CERVICAL SPINE NON CONTRAST - Spine fx, traumatic, cervical (01/22/2025 12:24 PM CDT) Anatomical Region Laterality Modality Spine Computed Tomogra phy 01/22/2025 2:02 PM CDT Impressions 01/22/2025 3:10 PM CDT IMPRESSION: 1.No acute intracranial hemorrhage, midline shift, or significant mass effect. 2.No evidence of acute fracture in the cervical, thoracic, or lumbar spine 3.Please refer to the concurrent, dedicated body report for findings in the chest, abdomen, and pelvis. > Interpreting Provider: Paulette Hernandez MD on 01/22/2025 3:10 PM Narrative 01/22/2025 3:10 PM CDT PROCEDURE: CT HEAD WO CONTRAST, CT CERVICAL SPINE WO CONTRAST, CT THORACIC SPINE WO CONTRAST, CT LUMBAR SPINE WO CONTRAST, DATE/TIME OF EXAM: 01/22/2025 12:25 PM, LOCATION [facility] INDICATION: T14.90XA: Trauma EXAMINATION: 1.Computed tomography (CT) of the head without contrast 2.CT of the cervical spine without contrast 3.CT of the thoracic spine without contrast 4.CT of the lumbar spine without contrast ADDITIONAL CLINICAL INFORMATION: Ordering Provider Reason For Exam: Trauma Technologist Note: None. Additional: None. TECHNIQUE: CT of the head and cervical spine was performed without contrast according to standard protocol. Reformatted axial, sagittal, and coronal images of the thoracic and lumbar spine were obtained by the technologist from a concurrently performed body CT and sent to the workstation for review. CT dose reduction technique was used, including Automated Exposure Control. COMPARISON: No prior study is available for comparison at the time of this dictation. FINDINGS: Head: No acute intra- or extra-axial fluid collections are identified. There is mild cerebral volume loss with associated ex vacuo ventricular dilatation. The basilar cisterns are patent. No mass effect or midline shift is seen. The bonner-white matter differentiation is normal. Periventricular white matter hypoattenuation is indicative of chronic small vessel ischemic disease. There is vascular calcification of the carotid siphons and the V4 segments of the vertebral arteries. No acute calvarial fracture is identified. The orbits appear normal. There is paranasal sinus disease. There is diffuse opacification in the ethmoid air cells. The nasal septum is deviated to the right with a septal spur in contact with the right inferior turbinate. Mild opacification in the dependent mastoid air cells bilaterally. The mastoid air cells are clear. No soft tissue abnormality is identified. Cervical spine: Relative straightening of the cervical lordosis. Trace anterolisthesis of C4 on C5. Minimal retrolisthesis of C5 on C6 and C6 on C7. Minimal anterolisthesis of C7 and on T1 and T1 on T2. The alignment is otherwise maintained. The left C7 transverse process, (series 5, image 107, favored to represent a nutrient channel. Vertebral bodies are normal in height without evidence of acute fracture. Other than middle atlantoaxial joint osteoarthritis, the craniocervical junction appears normal. There is mild degenerative disc disease. No central canal stenosis is seen. There are varying degrees of mild facet osteoarthritis. The uncovertebral joints appear normal. with the same degree of neural foraminal stenosis at these levels. Small, left more than right apical pneumothoraces are noted. Thoracic spine: Exaggeration of the thoracic kyphosis. Minimal levocurvature of the upper thoracic spine. The bones are osteopenic. There is a mildly displaced fracture of the lateral right first rib. Additional rib fractures are better assess done the concurrent body CT. Subtle anterior wedging deformity of the T7 vertebral body without definite fracture lines. The remaining vertebral bodies are normal in height without evidence of acute fracture. There is mild degenerative disc disease. No high-grade central canal stenosis is seen. There is mild facet osteoarthritis at multiple levels. No high-grade neural foraminal stenosis is seen. There is subsegmental atelectasis in the dependent portions of the lung bases. There is left atrial enlargement. There are calcifications of the aortic root. There are atherosclerotic calcifications of the coronary arteries. There is thickening of the interventricular septum and the left ventricular wall. There are multiple gallbladder stones, the largest measures approximately 1.9 cm, (series 8, image 108). The patient is status post median sternotomy. Sternal fractures are better assessed on the concurrent body CT. Lumbar spine: Relative straightening of the lumbar lordosis. Minimal retrolisthesis of L3 on L4, L4 on L5, and to a lesser extent L2 on L3. Minimal levocurvature of the lumbar spine. Vertebral bodies are normal in height without evidence of acute fracture. There is diffuse disc bulge at multiple levels. No high-grade central canal stenosis is seen. There is mild to moderate facet osteoarthritis at multiple levels. There are varying degrees of neural foraminal stenosis at multiple levels. Colonic diverticulosis is partially imaged. There is atherosclerotic calcification of the abdominal aorta and its branch vessels. Brain injury guidelines: Skull fracture: No Subdural hematoma: No subdural hematoma. Epidural hematoma: No epidural hematoma. Intraparenchymal hemorrhage: No intraparenchymal hemorrhage. Subarachnoid hemorrhage: No subarachnoid hemorrhage. Intraventricular hemorrhage: No. Midline shift: No. Procedure Note Paulette Hernandez MD - 01/22/2025 PROCEDURE: CT HEAD WO CONTRAST, CT CERVICAL SPINE WO CONTRAST, CTTHORACIC SPINE WO CONTRAST, CT LUMBAR SPINE WO CONTRAST, DATE/TIME OF EXAM: 01/22/2025 12:25 PM, LOCATION [facility] INDICATION: T14.90XA: Trauma EXAMINATION: 1.Computed tomography (CT) of the head without contrast 2.CT of the cervical spine without contrast 3.CT of the thoracic spine without contrast 4.CT of the lumbar spine without contrast ADDITIONAL CLINICAL INFORMATION: Ordering Provider Reason For Exam: Trauma Technologist Note: None. Additional: None. TECHNIQUE: CT of the head and cervical spine was performed withoutcontrast according to standard protocol. Reformatted axial, sagittal, and coronal images of the thoracic and lumbar spine were obtained by thetechnologist from a concurrently performed body CT and sent to the workstation for review. CT dose reduction technique was used, including AutomatedExposure Control. COMPARISON: No prior study is available for comparison at the time ofthis dictation. FINDINGS: Head: No acute intra- or extra-axial fluid collections are identified. Thereis mild cerebral volume loss with associated ex vacuo ventriculardilatation. The basilar cisterns are patent. No mass effect or midline shift isseen. The bonner-white matter differentiation is normal. Periventricular white matter hypoattenuation is indicative of chronic small vessel ischemic disease. There is vascular calcification of the carotid siphons and theV4 segments of the vertebral arteries. No acute calvarial fracture is identified. The orbits appear normal. There is paranasal sinus disease. There is diffuse opacification in the ethmoid air cells. The nasalseptum is deviated to the right with a septal spur in contact with the right inferior turbinate. Mild opacification in the dependent mastoid aircells bilaterally. The mastoid air cells are clear. No soft tissue abnormalityis identified. Cervical spine: Relative straightening of the cervical lordosis. Trace anterolisthesisof C4 on C5. Minimal retrolisthesis of C5 on C6 and C6 on C7. Minimal anterolisthesis of C7 and on T1 and T1 on T2. The alignment is otherwise maintained. The left C7 transverse process, (series 5, image 107,favored to represent a nutrient channel. Vertebral bodies are normal in height without evidence of acute fracture. Other than middle atlantoaxial joint osteoarthritis, the craniocervical junction appears normal. There ismild degenerative disc disease. No central canal stenosis is seen. There are varying degrees of mild facet osteoarthritis. The uncovertebral joints appear normal. with the same degree of neural foraminal stenosis atthese levels. Small, left more than right apical pneumothoraces are noted. Thoracic spine: Exaggeration of the thoracic kyphosis. Minimal levocurvature of theupper thoracic spine. The bones are osteopenic. There is a mildly displaced fracture of the lateral right first rib. Additional rib fractures are better assess done the concurrent body CT. Subtle anterior wedging deformity of the T7 vertebral body without definite fracture lines. The remaining vertebral bodies are normal in height without evidence ofacute fracture. There is mild degenerative disc disease. No high-grade central canal stenosis is seen. There is mild facet osteoarthritis at multiple levels. No high-grade neural foraminal stenosis is seen. There is subsegmental atelectasis in the dependent portions of the lung bases.There is left atrial enlargement. There are calcifications of the aortic root. There are atherosclerotic calcifications of the coronary arteries. Thereis thickening of the interventricular septum and the left ventricular wall. There are multiple gallbladder stones, the largest measuresapproximately 1.9 cm, (series 8, image 108). The patient is status post median sternotomy. Sternal fractures are better assessed on the concurrent body CT. Lumbar spine: Relative straightening of the lumbar lordosis. Minimal retrolisthesis ofL3 on L4, L4 on L5, and to a lesser extent L2 on L3. Minimal levocurvatureof the lumbar spine. Vertebral bodies are normal in height without evidenceof acute fracture. There is diffuse disc bulge at multiple levels. No high-grade central canal stenosis is seen. There is mild to moderatefacet osteoarthritis at multiple levels. There are varying degrees of neural foraminal stenosis at multiple levels. Colonic diverticulosis ispartially imaged. There is atherosclerotic calcification of the abdominal aortaand its branch vessels. Brain injury guidelines: Skull fracture: No Subdural hematoma: No subdural hematoma. Epidural hematoma: No epidural hematoma. Intraparenchymal hemorrhage: No intraparenchymal hemorrhage. Subarachnoid hemorrhage: No subarachnoid hemorrhage. Intraventricular hemorrhage: No. Midline shift: No. IMPRESSION: 1.No acute intracranial hemorrhage, midline shift, or significant mass effect. 2.No evidence of acute fracture in the cervical, thoracic, or lumbarspine 3.Please refer to the concurrent, dedicated body report for findings inthe chest, abdomen, and pelvis. > Interpreting Provider: Paulette Hernandez MD on 01/22/2025 3:10 PM us Jose Ramon Allen MD CT ORDERABLES Final Resu lt * CT HEAD WO CONTRAST - Intracranial hemmorrhage (01/22/2025 12:24 PM CDT) Anatomical Region Laterality Modality Head Computed Tomogra phy 01/22/2025 2:02 PM CDT Impressions 01/22/2025 3:10 PM CDT IMPRESSION: 1.No acute intracranial hemorrhage, midline shift, or significant mass effect. 2.No evidence of acute fracture in the cervical, thoracic, or lumbar spine 3.Please refer to the concurrent, dedicated body report for findings in the chest, abdomen, and pelvis. > Interpreting Provider: Paulette Hernandez MD on 01/22/2025 3:10 PM Narrative 01/22/2025 3:10 PM CDT PROCEDURE: CT HEAD WO CONTRAST, CT CERVICAL SPINE WO CONTRAST, CT THORACIC SPINE WO CONTRAST, CT LUMBAR SPINE WO CONTRAST, DATE/TIME OF EXAM: 01/22/2025 12:25 PM, LOCATION [facility] INDICATION: T14.90XA: Trauma EXAMINATION: 1.Computed tomography (CT) of the head without contrast 2.CT of the cervical spine without contrast 3.CT of the thoracic spine without contrast 4.CT of the lumbar spine without contrast ADDITIONAL CLINICAL INFORMATION: Ordering Provider Reason For Exam: Trauma Technologist Note: None. Additional: None. TECHNIQUE: CT of the head and cervical spine was performed without contrast according to standard protocol. Reformatted axial, sagittal, and coronal images of the thoracic and lumbar spine were obtained by the technologist from a concurrently performed body CT and sent to the workstation for review. CT dose reduction technique was used, including Automated Exposure Control. COMPARISON: No prior study is available for comparison at the time of this dictation. FINDINGS: Head: No acute intra- or extra-axial fluid collections are identified. There is mild cerebral volume loss with associated ex vacuo ventricular dilatation. The basilar cisterns are patent. No mass effect or midline shift is seen. The bonner-white matter differentiation is normal. Periventricular white matter hypoattenuation is indicative of chronic small vessel ischemic disease. There is vascular calcification of the carotid siphons and the V4 segments of the vertebral arteries. No acute calvarial fracture is identified. The orbits appear normal. There is paranasal sinus disease. There is diffuse opacification in the ethmoid air cells. The nasal septum is deviated to the right with a septal spur in contact with the right inferior turbinate. Mild opacification in the dependent mastoid air cells bilaterally. The mastoid air cells are clear. No soft tissue abnormality is identified. Cervical spine: Relative straightening of the cervical lordosis. Trace anterolisthesis of C4 on C5. Minimal retrolisthesis of C5 on C6 and C6 on C7. Minimal anterolisthesis of C7 and on T1 and T1 on T2. The alignment is otherwise maintained. The left C7 transverse process, (series 5, image 107, favored to represent a nutrient channel. Vertebral bodies are normal in height without evidence of acute fracture. Other than middle atlantoaxial joint osteoarthritis, the craniocervical junction appears normal. There is mild degenerative disc disease. No central canal stenosis is seen. There are varying degrees of mild facet osteoarthritis. The uncovertebral joints appear normal. with the same degree of neural foraminal stenosis at these levels. Small, left more than right apical pneumothoraces are noted. Thoracic spine: Exaggeration of the thoracic kyphosis. Minimal levocurvature of the upper thoracic spine. The bones are osteopenic. There is a mildly displaced fracture of the lateral right first rib. Additional rib fractures are better assess done the concurrent body CT. Subtle anterior wedging deformity of the T7 vertebral body without definite fracture lines. The remaining vertebral bodies are normal in height without evidence of acute fracture. There is mild degenerative disc disease. No high-grade central canal stenosis is seen. There is mild facet osteoarthritis at multiple levels. No high-grade neural foraminal stenosis is seen. There is subsegmental atelectasis in the dependent portions of the lung bases. There is left atrial enlargement. There are calcifications of the aortic root. There are atherosclerotic calcifications of the coronary arteries. There is thickening of the interventricular septum and the left ventricular wall. There are multiple gallbladder stones, the largest measures approximately 1.9 cm, (series 8, image 108). The patient is status post median sternotomy. Sternal fractures are better assessed on the concurrent body CT. Lumbar spine: Relative straightening of the lumbar lordosis. Minimal retrolisthesis of L3 on L4, L4 on L5, and to a lesser extent L2 on L3. Minimal levocurvature of the lumbar spine. Vertebral bodies are normal in height without evidence of acute fracture. There is diffuse disc bulge at multiple levels. No high-grade central canal stenosis is seen. There is mild to moderate facet osteoarthritis at multiple levels. There are varying degrees of neural foraminal stenosis at multiple levels. Colonic diverticulosis is partially imaged. There is atherosclerotic calcification of the abdominal aorta and its branch vessels. Brain injury guidelines: Skull fracture: No Subdural hematoma: No subdural hematoma. Epidural hematoma: No epidural hematoma. Intraparenchymal hemorrhage: No intraparenchymal hemorrhage. Subarachnoid hemorrhage: No subarachnoid hemorrhage. Intraventricular hemorrhage: No. Midline shift: No. Procedure Note Paulette Hernandez MD - 01/22/2025 PROCEDURE: CT HEAD WO CONTRAST, CT CERVICAL SPINE WO CONTRAST, CTTHORACIC SPINE WO CONTRAST, CT LUMBAR SPINE WO CONTRAST, DATE/TIME OF EXAM: 01/22/2025 12:25 PM, LOCATION [facility] INDICATION: T14.90XA: Trauma EXAMINATION: 1.Computed tomography (CT) of the head without contrast 2.CT of the cervical spine without contrast 3.CT of the thoracic spine without contrast 4.CT of the lumbar spine without contrast ADDITIONAL CLINICAL INFORMATION: Ordering Provider Reason For Exam: Trauma Technologist Note: None. Additional: None. TECHNIQUE: CT of the head and cervical spine was performed withoutcontrast according to standard protocol. Reformatted axial, sagittal, and coronal images of the thoracic and lumbar spine were obtained by thetechnologist from a concurrently performed body CT and sent to the workstation for review. CT dose reduction technique was used, including AutomatedExposure Control. COMPARISON: No prior study is available for comparison at the time ofthis dictation. FINDINGS: Head: No acute intra- or extra-axial fluid collections are identified. Thereis mild cerebral volume loss with associated ex vacuo ventriculardilatation. The basilar cisterns are patent. No mass effect or midline shift isseen. The bonner-white matter differentiation is normal. Periventricular white matter hypoattenuation is indicative of chronic small vessel ischemic disease. There is vascular calcification of the carotid siphons and theV4 segments of the vertebral arteries. No acute calvarial fracture is identified. The orbits appear normal. There is paranasal sinus disease. There is diffuse opacification in the ethmoid air cells. The nasalseptum is deviated to the right with a septal spur in contact with the right inferior turbinate. Mild opacification in the dependent mastoid aircells bilaterally. The mastoid air cells are clear. No soft tissue abnormalityis identified. Cervical spine: Relative straightening of the cervical lordosis. Trace anterolisthesisof C4 on C5. Minimal retrolisthesis of C5 on C6 and C6 on C7. Minimal anterolisthesis of C7 and on T1 and T1 on T2. The alignment is otherwise maintained. The left C7 transverse process, (series 5, image 107,favored to represent a nutrient channel. Vertebral bodies are normal in height without evidence of acute fracture. Other than middle atlantoaxial joint osteoarthritis, the craniocervical junction appears normal. There ismild degenerative disc disease. No central canal stenosis is seen. There are varying degrees of mild facet osteoarthritis. The uncovertebral joints appear normal. with the same degree of neural foraminal stenosis atthese levels. Small, left more than right apical pneumothoraces are noted. Thoracic spine: Exaggeration of the thoracic kyphosis. Minimal levocurvature of theupper thoracic spine. The bones are osteopenic. There is a mildly displaced fracture of the lateral right first rib. Additional rib fractures are better assess done the concurrent body CT. Subtle anterior wedging deformity of the T7 vertebral body without definite fracture lines. The remaining vertebral bodies are normal in height without evidence ofacute fracture. There is mild degenerative disc disease. No high-grade central canal stenosis is seen. There is mild facet osteoarthritis at multiple levels. No high-grade neural foraminal stenosis is seen. There is subsegmental atelectasis in the dependent portions of the lung bases.There is left atrial enlargement. There are calcifications of the aortic root. There are atherosclerotic calcifications of the coronary arteries. Thereis thickening of the interventricular septum and the left ventricular wall. There are multiple gallbladder stones, the largest measuresapproximately 1.9 cm, (series 8, image 108). The patient is status post median sternotomy. Sternal fractures are better assessed on the concurrent body CT. Lumbar spine: Relative straightening of the lumbar lordosis. Minimal retrolisthesis ofL3 on L4, L4 on L5, and to a lesser extent L2 on L3. Minimal levocurvatureof the lumbar spine. Vertebral bodies are normal in height without evidenceof acute fracture. There is diffuse disc bulge at multiple levels. No high-grade central canal stenosis is seen. There is mild to moderatefacet osteoarthritis at multiple levels. There are varying degrees of neural foraminal stenosis at multiple levels. Colonic diverticulosis ispartially imaged. There is atherosclerotic calcification of the abdominal aortaand its branch vessels. Brain injury guidelines: Skull fracture: No Subdural hematoma: No subdural hematoma. Epidural hematoma: No epidural hematoma. Intraparenchymal hemorrhage: No intraparenchymal hemorrhage. Subarachnoid hemorrhage: No subarachnoid hemorrhage. Intraventricular hemorrhage: No. Midline shift: No. IMPRESSION: 1.No acute intracranial hemorrhage, midline shift, or significant mass effect. 2.No evidence of acute fracture in the cervical, thoracic, or lumbarspine 3.Please refer to the concurrent, dedicated body report for findings inthe chest, abdomen, and pelvis. > Interpreting Provider: Paulette Hernandez MD on 01/22/2025 3:10 PM us Jose Ramon Allen MD CT ORDERABLES Final Resu lt * TYPE + SCREEN PANEL (01/22/2025 12:09 PM CDT) Antibody Screen NEG 1:49 PM CDT [facility] ABO Rh B POS 01/22/2025 1:49 PM CDT [facility] Blood Bank BLOOD SPECIMEN / Unknown Venipuncture / Unknown 01/22/2025 12:09 PM CDT 01/22/2025 12:43 PM CDT Jose Ramon Allen MD LAB - BLOOD BANK ORDERABLE S Final Result [facility] [address] [place] [address], [facility] [phone] * PTT (01/22/2025 12:09 PM CDT) APTT 28.8 23.0 - 38.4 Seconds 01/22/2025 12:41 PM CDT [facility] Comment:Suggested therapeuti c range for full dose I.V. unfractionated heparin therapy for venous thromboembolism is 71 to 109 seconds. Blood BLOOD SPECIMEN / Unknown Venipuncture / Unknown 01/22/2025 12:09 PM CDT 01/22/2025 12:12 PM CDT Jose Ramon Allen MD LAB - COAGULATION ORDERABL ES Final Result Performing Organization Address City/[facility]/ZIP Co de Phone Number [facility] [address] [place] [address], [place] [phone] * PT-INR (01/22/2025 12:09 PM CDT) PT 13.6 12.1 - 14.8 Seconds 01/22/2025 12:41 PM CDT [facility] INR 1.1 See Comment 01/22/2025 12:41 PM CDT [facility] Comment:The suggested therap eutic range for standard coumadin (warfarin) therapy is an INR of 2.0-3.0. For high-risk patients (Mechanical Mitral Valve Prosthesis, etc.), the suggested prophylactic therapeutic range is an INR of 2.5-3.5. Blood BLOOD SPECIMEN / Unknown Venipuncture / Unknown 01/22/2025 12:09 PM CDT 01/22/2025 12:12 PM CDT us Jose Ramon Allen MD LAB - COAGULATION ORDERABL ES Final Result [facility] [address] [place] [address], [facility] [phone] * (ABNORMAL) COMPREHENSIVE METABOLIC PANEL (01/22/2025 12:09 PM CDT) BUN 14 7 - 26 mg/dL 01/22/2025 12:52 PM [facility] Creatinine 0.78 0.71 - 1.16 mg/dL 01/22/2025 12:52 PM [facility] Sodium 142 136 - 145 mmol/L 01/22/2025 12:52 PM [facility] Potassium 3.5 3.5 - 4.5 mmol/L 01/22/2025 12:52 PM [facility] Chloride 110(H) 98 - 107 mmol/L 01/22/2025 12:52 PM [facility] CO2 25 22 - 29 mmol/L 01/22/2025 12:52 PM [facility] Glucose 125(H) 70 - 99 mg/dL 01/22/2025 12:52 PM [facility] Calcium 9.0 8.4 - 10.2 mg/dL 01/22/2025 12:52 PM [facility] Protein Total 7.1 6.0 - 8.3 g/dL 01/22/2025 12:52 PM [facility] Albumin 4.3 3.4 - 5.0 g/dL 01/22/2025 12:52 PM [facility] Bilirubin Total 1.0 0.2 - 1.2 mg/dL 01/22/2025 12:52 PM [facility] Alkaline Phosphatase 68 40 - 150 U/L 01/22/2025 12:52 PM [facility] ALT 30 5 - 55 U/L 01/22/2025 12:52 PM CDT [facility] AST 44(H) 5 - 34 U/L 01/22/2025 12:52 PM T [facility] Anion Gap 7 6 - 16 01/22/2025 12:52 PM T [facility] BUN/Creatinine Ratio 18 7 - 23 01/22/2025 12:52 PM T [facility] Osmolality Calculated 296(H) 275 - 295 mOsm/kg 01/22/2025 12:52 PM T [facility] Albumin/Globulin Ratio 1.5 1.1 - 2.3 01/22/2025 12:52 PM T [facility] eGFR by CKD-EPI >90 >=90 mL/min/1.7 3 m2 01/22/2025 12:52 PM T [facility] Comment:Estimated Glomerular Filtration Rate (eGFR) calculated using the CKD-EPI Creatinine Equation (2020), per the National Kidney Foundation and [place] [employer] recommendations. Blood BLOOD SPECIMEN / Unknown Venipuncture / Unknown 01/22/2025 12:09 PM CDT 01/22/2025 12:16 PM CDT Jose Ramon Allen MD LAB - CHEMISTRY ORDERABLES Final Result [address] [address], [facility] [phone] * LIPASE BLOOD (01/22/2025 12:09 PM CDT) Lipase 21 8 - 78 U/L 01/22/2025 12:52 PM CDT [facility] Blood BLOOD SPECIMEN / Unknown Venipuncture / Unknown 01/22/2025 12:09 PM CDT 01/22/2025 12:16 PM CDT Narrative [facility] - 01/22/2025 12:52 PM CDT Lipase results from the [employer] Al[employer] analyzer may not be comparable with other methodologies. Jose Ramon Allen MD LAB - CHEMISTRY ORDERABLES Final Result [address] [address], [facility] [phone] * (ABNORMAL) CK BLOOD (01/22/2025 12:09 PM CDT) CK Total 382(H) 30 - 200 U/L 01/22/2025 12:52 PM CDT [facility] Blood BLOOD SPECIMEN / Unknown Venipuncture / Unknown 01/22/2025 12:09 PM CDT 01/22/2025 12:16 PM CDT Jose Ramon Allen MD LAB - CHEMISTRY ORDERABLES Final Result Performing Organization Address [facility] Co de Phone Number [address] [address], [place] [phone] * ALCOHOL ETHYL BLOOD (01/22/2025 12:09 PM CDT) Pathologist [facility] Ethanol (mg/dL) <10 <10 mg/dL 12:52 PM CDT [facility] Ethanol Calculated (g/dL) <0.010 <=0.010 g/dL 01/22/2025 12:52 PM CDT [facility] Blood BLOOD SPECIMEN / Unknown Venipuncture / Unknown 01/22/2025 12:09 PM CDT 01/22/2025 12:16 PM CDT Narrative [facility] - 01/22/2025 12:52 PM CDT Ethanol Interp <10: None Detected. Depression of EPIC APPLICATION COORDINATOR: >100 mg/dl Potentially Critical: >250 mg/dl Potentially Fatal >400 mg/dl Ethanol in the patient's blood will contribute to the osmolar gap. Ethanol's contribution to the osmolar gap can be estimated by dividing the concentration of ethanol in mg/dL by 4.6. This test is for clinical use only and does not equal a MARGARETH for legal purposes. Jose Ramon Allen MD LAB - CHEMISTRY ORDERABLES Final Result Performing Organization Address City/[facility]/ZIP Co de Phone Number [address] [address], [place] [phone] * XR PELVIS 1 OR 2 VW (01/22/2025 12:03 PM CDT) Anatomical Region Laterality Modality Pelvis Digital Radiogra phy 01/22/2025 1:32 PM CDT Impressions 01/22/2025 1:45 PM CDT IMPRESSION: No acute fracture identified. Report dictated by Jonathan Delvalle MD, MD (vice president of academic affairs). > Dictated by Jonathan Delvalle MD 01/22/2025 1:32 PM > Dictated by Head Pastry Chef I, Levon Lopez MD have personally reviewed and interpreted this examination/study. > Interpreting Provider: Levon Lopez MD on 01/22/2025 1:45 PM Narrative 01/22/2025 1:45 PM CDT PROCEDURE: XR PELVIS 1 OR 2VW, DATE/TIME OF EXAM: 01/22/2025 12:03 PM, LOCATION [facility] INDICATION: T14.90XA: Trauma ADDITIONAL CLINICAL INFORMATION: Ordering Provider Reason For Exam: trauma COMPARISON: Conference CT chest abd pelvis with contrast FINDINGS: No acute fracture is identified. The femoral heads appear well-seated within their respective acetabula. The pubic symphysis is intact. Bone density and texture are normal. No sacroiliac diastasis is identified. Degenerative disc disease at L4-L5 and L5-S1. Metallic seeds/clips at the region of the prostate. Procedure Note Levon Lopez MD - 01/22/2025 PROCEDURE: XR PELVIS 1 OR 2VW, DATE/TIME OF EXAM: 01/22/2025 12:03 PM, LOCATION [facility] INDICATION: T14.90XA: Trauma ADDITIONAL CLINICAL INFORMATION: Ordering Provider Reason For Exam: trauma COMPARISON: Conference CT chest abd pelvis with contrast FINDINGS: No acute fracture is identified. The femoral heads appear well-seated within their respective acetabula. The pubic symphysis is intact. Bone density and texture are normal. No sacroiliac diastasis is identified. Degenerative disc disease at L4-L5 and L5-S1. Metallic seeds/clips atthe region of the prostate. IMPRESSION: No acute fracture identified. Report dictated by Jonathan Delvalle MD, MD (vice president of academic affairs). > Dictated by Jonathan Delvalle MD 01/22/2025 1:32 PM > Dictated by Head Pastry Chef I, Levon Lopez MD have personally reviewed and interpreted this examination/study. > Interpreting Provider: Levon Lopez MD on 01/22/2025 1:45 PM Jose Ramon Allen MD DIAGNOSTIC IMAGING ORDERAB LES Final Result from Last 3 Months Insurance [employer] [place] Advance Directives * Full Code (Latest Code Status on File) Date Activated Date Inactivated Comments 01/22/2025 4:38 PM 01/24/2025 7:42 PM Care Teams Mine Technician Relationship Specialty Start Date End Date Daniela Jose, INSTRUCTOR DECORATING-STAFF INTERPRETER [address] [place] [address] PCP - General Nurse Practitioner Family 01/22/25
--- OUTSIDE RECORDS SUMMARY | 2025-02-03 13:57 | XMS_ITS | Clinical Summary ---
Author Organization [facility] Address [facility] [place] [address] Care Team Providers Care System Specialist Name Role Phone Unavailable Primary Care Provider [...] 75+ series) 2021 COVID-19 Vaccine ( - 2024-2 6 season) 2024 Influenza Adult (#1) 2025 Hepatitis A Vaccines Aged Out No long er eligible based on patient's age to complete this topic Meningococcal B Vaccine Aged Out No l onger eligible based on patient's age to complete this topic Meningococcal Vaccine Aged Out No madonna coleman eligible based on patient's age to complete this topic RSV Immunizations Under 20 Months Aged Out No longer eligible based on patient's age to complete this topic
== END 2025-02-03 12:39 | disposition home or self-care (01) ==
LOC: CHSIMG 12:41
PROVIDERS: PCP Nurse Practitioner Family; Visit Provider Nurse Practitioner Family
DX: S22.49XA Multiple fractures of ribs, unspecified side, initial encounter for closed fracture (principal); J18.9 Pneumonia, unspecified organism
CPT/HCPCS: 71046

== ENCOUNTER 2025-02-15 11:06 | Outpatient (CLI) | payer MEDICARE, OTHER, SELFPAY ==
--- NOTE | ~2025-02-15 | MR_ITS ---
EXAMINATION: MR brain IAC wo con DATE: 02/15/2025 12:06 INDICATION: Disorientation, unspecified. TECHNIQUE: Magnetic resonance imaging (MRI) of the brain, brainstem, and internal auditory canals was performed without intravenous contrast. COMPARISON: Brain MRI 05/25/2023 FINDINGS: There are scattered areas of nonspecific increased T2-weighted signal intensity in the cerebral white matter and marli. There is no intracranial hemorrhage, acute infarction, or abnormal intracranial mass lesion. The ventricles are normal in size. There is mucosal thickening in the paranasal s inuses. The orbits are normal. The internal auditory canals, inner areas, and tympanic cavities are normal. There are small bilateral mastoid effusions. IMPRESSION: 1. 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 Reviewed, dictated and finalized at location E. K PATROL IMPRESSION: 1. Stable mild nonspecific cerebral white matter disease and pontine disease, w hich likely represents chronic small vessel ischemic disease.
--- OUTSIDE RECORDS SUMMARY | 2025-02-15 11:09 | XMS_ITS | Clinical Summary ---
Author Organization [facility] Address Replaced by [facility] [place] [address] Care Team Providers Care Glaze Maker Name Role Phone Unavailable Primary Care Provider [...]
== END 2025-02-15 11:07 | disposition home or self-care (01) ==
LOC: CHSIMG 11:07
PROVIDERS: PCP Nurse Practitioner Family; Visit Provider Nurse Practitioner Family
DX: R41.0 Disorientation, unspecified (principal); R90.82 White matter disease, unspecified
CPT/HCPCS: 70551